=== PATIENT | female | born 1965 | race Hispanic/Latino ===

== ENCOUNTER → 2022-04-15 | Outpatient (CLI) | payer OTHER, MEDICARE | END | disposition home or self-care (01) | LOC: RAH 08:23 | PROVIDERS: ATTEND Internal Medicine | DX: I71.40 Abdominal aortic aneurysm, without rupture, unspecified (principal); R59.0 Localized enlarged lymph nodes; Z88.0 Allergy status to penicillin | CPT/HCPCS: 76536; 76775 ==